=== PATIENT | female | born 1940 | race Caucasian/White ===

== ENCOUNTER 2017-12-01 10:21 | Emergency (ER) | payer OTHER ==
[~2017-12-01] VITALS: Ht 160 cm; Wt 61.7 kg
[~2017-12-01 10:21] MED LIST: ASPIR 8181 MG PO; CALCIUM + D 6001 TAB PO; CRESTOR20 MG PO; HYDRODIURIL 2525 MG PO; LEVEMIR100 U/ML SC; LOPRESSOR50 MG PO; MAG PO; NORFLEX100 MG PO; NORVASC 10MG10 MG PO; NOVOLOG100 U/ML SC; SYNTHROID0.05 MG PO; TEKTURNA300 MG PO; [UNRECOGNIZED DRUG - OTHER] PO
--- NOTE | 2017-12-01 10:49 | ED GI/GU/ABDOMINAL COMPLAINT ---
History of Present Illness General Chief Complaint: Nausea, Vomiting, Diarrhea Stated Complaint: NVD Source: patient, family, old records Exam Limitations: no limitations Vital Signs & Intake/Output Vital Signs & Intake/Output Vital Signs Date Time Temp Pulse Resp B/P B/P Pulse O2 O2 Flow FiO2 Mean Ox Delivery Rate 12/01 1158 97.6 82 18 128/59 98 Room Air 12/01 1025 98.6 109 18 136/76 98 Room Air Allergies Coded Allergies: MDX - Oxycodone (OXYCODONE) (VOMITING, GI UPSET 02/11/15) Reconcile Medications ALISKIREN HEMIFUMARATE (Tekturna) 300 MG TABLET 1 TAB PO DAILY BP (Reported) Amlodipine (Norvasc 10MG) 10 MG TABLET 1 TAB PO DAILY BP (Reported) Aspirin (Ecotrin) 81 MG TABLET.DR 1 TAB PO DAILY HEART HEALTH (Reported) Calcium Carbonate/Magnesium/ (Liqui-David/Mag 600 MG-75 MG-25 Iu) (Unknown Strength) SGL (Unknown Dose) PO DAILY SUPPLEMENT (Reported) Hydrochlorothiazide (Hydrodiuril 25 MG Tab) 25 MG TABLET 1 TAB PO DAILY BP ( Reported) Insulin Aspart, Recombinant (Novolog) 100 U/ML FAUSTO 16 UNITS SC TIDAC GLUCOSE CONTROL (Reported) BLOOD SUGAR # OF UNITS < 80 NONE 80-150 NONE 151-200 4 UNITS 201-250 6 UNITS 251-300 8 UNITS 301-350 10 UNITS 351-400 12 UNITS >400 14 UNITS and call MD Insulin Detemir (Levemir) 100 U/ML FAUSTO 70 UNITS SC BID DIABETES (Reported) Levothyroxine Sodium (Synthroid) 0.05 MG TAB 0.05 MG PO DAILY AC THYROID ( Reported) Metoprolol Tartrate (Lopressor) 50 MG TAB 0.5 TAB PO BID BP (Reported) Rosuvastatin Calcium (Crestor) 20 MG TABLET 1 TAB PO QPM CHOLESTEROL ( Reported) Triage Note: 77 YO FEMALE TO TRIAGE C/O NVD. STATES SHE SEES PAIN MANAGEMENT FOR SPINAL STENOSIS. STATES SHE IS ON (LYRICA, MELOXICAM, MORPHINE) STATES SHE RAN OUT OF HER MEDS AND HER LAST DOSE WAS ON LAST FRIDAY. STATES SHE HAS BEEN HAVING DIRRHEA AND DRY HEAVES. STATES "EVERYTHING I EAT GOES THROUGH ME" Triage Nurses Notes Reviewed? yes ? n Is pt currently ? No HPI: Patient presents with increasing nausea and anorexia worsening over the past week. Patient is a diabetic but she has not wanted to take her insulin but she has not been eating. Patient states she has a gnawing sensation in her epigastric area that has been present for the past 3 days constantly. There are no aggravating or mitigating factors. There is no radiation. She rates it as mild on the scale. Patient states that she had diarrhea "all day yesterday." Patient states that she has IBS but her diarrhea is usually controlled. Patient denies any chest pain or shortness of breath. There is no fatigue. This morning her fingerstick was 400 so she comes to the emergency department for evaluation. Of note patient is on chronic pain management and she ran out of her pain medication 4 days ago. Patient has no appointment to see her pain management doctor on Friday. Past History Travel History Traveled to [place] past 21 day No Medical History Any Pertinent Medical History? see below for history ( ) Neurological: NONE EENT: NONE Cardiovascular: HTN, HIGH CHOL Respiratory: NONE Gastrointestinal: NONE Hepatic: NONE Renal: NONE Musculoskeletal: SPINAL FUSION Psychiatric: NONE Endocrine: diabetes, HYPOTHYRIOD History of CDIFF: No Surgical History Surgical History: non-contributory Psychosocial History What is your primary language Palauan Tobacco Use: Never used Family History Hx Contributory? No Review of Systems Review of Systems Constitutional: Reports: no symptoms. EENTM: Reports: no symptoms. Respiratory: Reports: no symptoms. Cardiovascular: Reports: no symptoms. GI: Reports: see HPI, abdominal pain, nausea. Genitourinary: Reports: no symptoms. Musculoskeletal: Reports: no symptoms. Skin: Reports: no symptoms. Neurological/Psychological: Reports: no symptoms. Hematologic/Endocrine: Reports: no symptoms. Immunologic/Allergic: Reports: no symptoms. All Other Systems: Reviewed and Negative Physical Exam Physical Exam General Appearance: well developed/nourished, alert, awake, mild distress Head: atraumatic, normal appearance Eyes: Bilateral: PERRL, EOMI. Ears, Nose, Throat, Mouth: hearing grossly normal, DRY MUCOSA Neck: normal inspection, supple, full range of motion Respiratory: normal breath sounds, chest non-tender, no respiratory distress, lungs clear Cardiovascular: regular rate/rhythm, normal peripheral pulses Gastrointestinal: normal bowel sounds, soft, non-tender, no organomegaly Back: normal inspection, normal range of motion Extremities: normal range of motion Neurologic/Psych: no motor/sensory deficits, awake, alert, oriented x 3, normal mood/affect Skin: intact, normal color, warm/dry Core Measures ACS in differential dx? No Sepsis Present: No Sepsis Focused Exam Completed? No Progress Differential Diagnosis: AMI, bowel obstruction, diverticulitis, gastritis, hepatitis, ischemic bowel, inflamm bowel dis, pancreatitis, peptic ulcer, PUD/ GERD, DKA Plan of Care: Orders Procedure Date/time Status Regular Diet 12/01 D Active Add-on Test (ER Only) 12/01 1308 Active CULTURE,URINE 12/01 1226 Active MIXED VENOUS BLOOD GAS (GEN) 12/01 1047 Active Telemetry/Machine Heel Sprayer 12/01 1047 Active URINALYSIS 12/01 1047 Complete TROPONIN LEVEL 12/01 1047 Complete LIPASE 12/01 1047 Complete COMPREHENSIVE METABOLIC PANEL 12/01 1047 Complete CBC WITHOUT DIFFERENTIAL 12/01 1047 Complete AMYLASE 12/01 1047 Complete ACETONE 12/01 1047 Complete EKG 12/01 1028 Active Laboratory Tests 12/01/17 1226: Urine Color YEL, Urine Clarity CLDY H, Urine pH 6.0, Ur Specific [place] 1.025, Urine Protein 100 H, Urine Ketones NEG, Urine Nitrite NEG, Urine Bilirubin NEG, Urine Urobilinogen 0.2, Ur Leukocyte Esterase TRACE H, Ur Microscopic SEDIMENT EXAMINED, Urine RBC RARE, Urine WBC > 75 H, Ur Epithelial Cells MOD H, Urine Bacteria PACKD H, Urine Hemoglobin MOD H, Urine Glucose >=1000 H 12/01/17 1101: Anion Gap 17 H, Estimated GFR > 60, BUN/Creatinine Ratio 23.3, Glucose 334 H, Calcium 9.9, Total Bilirubin 0.8, AST 48 H, ALT 37, Alkaline Phosphatase 162 H , Troponin I 0.02, Total Protein 7.4, Albumin 4.4, Globulin 3.0, Albumin/ Globulin Ratio 1.5, Amylase 33, Lipase 167, CBC w Diff NO MAN DIFF REQ, RBC 5.09 , MCV 85.8, MCH 29.2, RDW 14.0, MPV 9.9, Gran % 82.0 H, Lymphocytes % 10.3 L, Monocytes % 7.7, Eosinophils % 0, Basophils % 0, Absolute Granulocytes 11.3 H, Absolute Lymphocytes 1.4, Absolute Monocytes 1.1 H, Absolute Eosinophils 0, Absolute Basophils 0, PUBS MCHC 34.0, Acetone Level NEGATIVE Microbiology 12/01 1226 URINE ROUT: Urine Culture - RECD Diagnostic Imaging: Viewed by Me: Radiology Read. Discussed w/RAD: Radiology Read. CXR Impression: PATIENT: ERENDIRA BRAY PRESENT AGE: 77 PATIENT ACCOUNT NO: [id number] : 39 LOCATION: [facility] ORDERING PHYSICIAN: Elie Torres MD SERVICE DATE: 12/01/17 EXAM TYPE: RAD - XRY- PORTABLE CHEST XRAY EXAMINATION: XR PORTABLE CHEST CLINICAL INFORMATION: Chest pain. COMPARISON: Chest done on 09/05/2013. TECHNIQUE: Portable frontal view of the chest was obtained. FINDINGS: Asymmetric low lung volume is present within the right hemithorax, similar to prior study. This is probably a normal variation. Both aerated lung trevino are clear. The cardiac mediastinal silhouette is within normal limit. There is no pleural effusion present. The visualized upper abdomen is unremarkable. IMPRESSION: No acute cardiopulmonary disease. DICTATED BY: Sue Scales MD DATE/TIME DICTATED:12/01/171137 SOFTWARE QUALITY AUTOMATION ENGINEER:JERONIMO DATE/TIME TRANSCRIBED:12/01/171137 CONFIDENTIAL, DO NOT COPY WITHOUT APPROPRIATE AUTHORIZATION. <Electronically signed in Other Vendor System> SIGNED BY: Sue Scales MD 12/01/17 1143 Initial ED EKG: SR, LVH, BIFASICULAR BLOCK, NEW FROM 2012 Prior EKG: changed Comments: Patient really wants to try and go home. Patient was given IV dose of antibiotics for her urinary tract infection. Patient will eat lunch and the emergency room and as long as she is able to tolerate eating she will then get up and ambulate and as long as she ambulated well to then be discharged. Patient ate lunch and then ambulated in the emergency department without difficulty. The patient is stable for discharge. Departure Departure Disposition: HOME OR SELF CARE Condition: Stable Clinical Impression Primary Impression: UTI (urinary tract infection) Secondary Impressions: Hyperglycemia Referrals: Angus WINKLER,Abe Albarado (PCP/Family) Additional Instructions: MAKE SURE YOU EAT AND TAKE YOUR MEDICATIONS PRESCRIBED TAKE ANTIBIOTICS PRESCRIBED RETURN FOR ANY CONCERNS Departure Forms: Customer Survey General Discharge Information Prescriptions: Current Visit Scripts Nitrofurantoin Monohyd/M-Cryst (Macrobid 100 MG Capsule) 1 CAP PO BID #14 CAP with food Morphine Sulfate 1 TAB PO BIDP PRN PAIN #7 TAB Pregabalin (Lyrica) 1 CAP PO DAILY #4 CAP Meloxicam 1 TAB PO DAILY #4 TAB
[2017-12-01 11:25] LABS: ABSOLUTE BASOPHIL COUNT 0 /CUMM (0.0-0.2); ABSOLUTE EOSINOPHIL COUNT 0 /CUMM (0.0-0.7); ABSOLUTE GRANULOCYTE CT 11.3 /CUMM (1.4-6.5); ABSOLUTE LYMPH COUNT 1.4 /CUMM (1.2-3.4); ABSOLUTE MONOCYTE COUNT 1.1 /CUMM (0.10-0.60); BASOPHIL % 0 % (0.0-2.0); EOSINOPHIL % 0 % (0-5); HEMATOCRIT 43.7 % (37-47); MEAN CORPUSCULAR HGB 29.2 PG (27.0-31.0); MEAN CORPUSCULAR VOLUME 85.8 FL (81.0-99.0); MEAN PLATELET VOLUME 9.9 FL (7.4-10.4); PLATELET COUNT 247 /CUMM (130-400); RED BLOOD CELL CT 5.09 /CUMM (4.20-5.40); WHITE BLOOD CELL COUNT 13.8 /CUMM (4.8-10.8)
--- NOTE | 2017-12-01 11:43 | RADIOLOGY REPORT ---
EXAMINATION: XR PORTABLE CHEST CLINICAL INFORMATION: Chest pain. COMPARISON: Chest done on 09/05/2013. TECHNIQUE: Portable frontal view of the chest was obtained. FINDINGS: Asymmetric low lung volume is present within the right hemithorax, similar to prior study. This is probably a normal variation. Both aerated lung trevino are clear. The cardiac mediastinal silhouette is within normal limit. There is no pleural effusion present. The visualized upper abdomen is unremarkable. IMPRESSION: No acute cardiopulmonary disease.
[2017-12-01] MEDS ORDERED: MORPHINE SULFAT30 M7 PO (14:31)
[2017-12-01] MEDS ORDERED: LYRICA100 M1 PO (14:31)
[2017-12-01] MEDS ORDERED: MELOXICAM15 M1 PO (14:31)
[2017-12-01] MEDS ORDERED: MACROBID 100 M100 MG PO (14:31)
[2017-12-01 14:36] VITALS: BP 124/70
== END 2017-12-01 14:37 ==
LOC: ERH 10:21
PROVIDERS: Emergency Medicine
DX: N39.0 Urinary tract infection, site not specified (principal); E11.65 Type 2 diabetes mellitus with hyperglycemia
CPT/HCPCS: 71045; 81001; 87086; 93005; 93010; 96374; 96375; J0696; J2405

== ENCOUNTER 2018-01-24 06:42 | Emergency (ER) | payer OTHER ==
[~2018-01-24] VITALS: Ht 149.9 cm; Wt 61.2 kg
[~2018-01-24 06:42] MED LIST changes: +LYRICA100 M1 PO; +MACROBID 100 M100 MG PO; +MELOXICAM15 M1 PO; +MORPHINE SULFAT30 M7 PO
--- NOTE | 2018-01-24 07:26 | ED GENERAL ADULT ---
History of Present Illness General Chief Complaint: Nausea, Vomiting, Diarrhea Stated Complaint: NVD SINCE ,?ADVERSE REACTION TO NEW MED Source: patient Exam Limitations: no limitations Vital Signs & Intake/Output Vital Signs & Intake/Output Vital Signs Date Time Temp Pulse Resp B/P B/P Pulse O2 O2 Flow FiO2 Mean Ox Delivery Rate 01/24 1240 98.4 90 18 140/82 95 Room Air 01/24 1037 98.2 83 18 147/65 94 Room Air 01/24 0645 99.5 84 18 174/76 95 Room Air Allergies Coded Allergies: oxycodone (VOMITING, GI UPSET 01/24/18) Reconcile Medications Albuterol Sulfate (Proair Hfa) 90 MCG HFA.AER.AD 2 PUF INH AD PRN RESP. ( Reported) Aliskiren Hemifumarate (Tekturna) 300 MG TABLET 1 TAB PO DAILY BP (Reported) Amlodipine Besylate 10 MG TABLET 1 TAB PO DAILY BP (Reported) Aspirin (Ecotrin*) 81 MG TABLET.DR 1 TAB PO DAILY HEART/BLOOD (Reported) Cholecalciferol (Vitamin D3) (Vitamin D3) 1,000 UNIT CAPSULE 1 CAP PO DAILY SUPPLEMENT (Reported) Cholestyramine/Aspartame (Prevalite Packet) (Unknown Strength) POWD.PACK ( Unknown Dose) PO AD GI (Reported) Dicyclomine HCl 10 MG CAPSULE 1 CAP PO 4XDAILY IBS (Reported) Diphenoxylate HCl/Atropine (Lomotil 2.5-0.025 MG Tablet) 2.5 MG-0.025 MG TABLET 1 TAB PO 4 TIMES/DAY PRN DIARRHEA (Reported) Etodolac 400 MG TABLET 1 TAB PO AD PAIN/INFLAMMATION (Reported) Hydrochlorothiazide 25 MG TABLET 1 TAB PO DAILY BP/DIURETIC (Reported) Insulin Aspart (Novolog) 100 UNIT/ML VIAL DM (Reported) Insulin Degludec (Tresiba Flextouch U-200) 200 UNIT/ML (3 ML) INSULN.PEN 44 UNITS SC QPM DM (Reported) Levothyroxine Sodium 50 MCG TABLET 1 TAB PO DAILY THYROID (Reported) Melatonin 10 MG CAPSULE 1 CAP PO QPM SLEEP (Reported) Metoprolol Tartrate (Lopressor) 50 MG TABLET 0.5 TAB PO BID HEART/BP ( Reported) Morphine Sulfate (Morphine Sulfate ER) 30 MG TABLET.ER 1 TAB PO BID PAIN ( Reported) Potassium Chloride (Klor-Con 10) 10 MEQ TABLET.ER 1 TAB PO DAILY SUPPLEMENT ( Reported) Pregabalin (Lyrica) 100 MG CAPSULE 1 CAP PO AD NERVE PAIN (Reported) Pyridoxine HCl (Vitamin B-6) 100 MG TABLET 1 TAB PO DAILY SUPPLEMENT ( Reported) Rosuvastatin Calcium (Crestor) 20 MG TABLET 1 TAB PO DAILY CHOLESTEROL ( Reported) Vitamin E Mixed (Vitamin E) (Unknown Strength) TABLET (Unknown Dose) PO BID SUPPLEMENT (Reported) Triage Note: PT TO ED FOR FOR VOMITING ONLY AFTER MEALS SINCE FRIDAY, DENIES ANY ABD PAIN, LNBM THIS AM. Triage Nurses Notes Reviewed? yes Onset: Abrupt Duration: day(s): Timing: recent history HPI: 01/24/18 9:23 AM 69-year-old female presents to the emergency department complaining of nausea and vomiting. The patient states she has a history of irritable bowel syndrome and diabetes. She was recently started on Prevalite by Dr. Gracia, this improved her diarrhea however she's now had vomiting and thinks that this may be the cause. She denies any abdominal pain. Past History Travel History Traveled to [place] past 21 day No Medical History Any Pertinent Medical History? see below for history Neurological: NONE EENT: NONE Cardiovascular: HTN, HIGH CHOL Respiratory: NONE Gastrointestinal: NONE Hepatic: NONE Renal: NONE Musculoskeletal: SPINAL FUSION Psychiatric: NONE Endocrine: diabetes, HYPOTHYRIOD History of CDIFF: No Surgical History Surgical History: cholecystectomy, hysterectomy, thyroid nodule Psychosocial History What is your primary language Portuguese Tobacco Use: Never used ETOH Use: denies use Illicit Drug Use: denies illicit drug use Family History Hx Contributory? No Review of Systems Review of Systems Constitutional: Denies: fever. EENTM: Denies: visual changes. Respiratory: Denies: short of breath. Cardiovascular: Denies: chest pain. GI: Reports: vomiting. Denies: abdominal pain. Genitourinary: Reports: no symptoms. Musculoskeletal: Reports: no symptoms. Skin: Reports: no symptoms. Neurological/Psychological: Reports: no symptoms. Hematologic/Endocrine: Reports: no symptoms. Immunologic/Allergic: Reports: no symptoms. Physical Exam Physical Exam General Appearance: well developed/nourished, alert, awake, anxious, moderate distress Head: atraumatic, normal appearance Eyes: Bilateral: normal appearance, PERRL, EOMI. Ears, Nose, Throat: normal pharynx, normal ENT inspection Neck: normal inspection, supple, full range of motion Respiratory: normal breath sounds, chest non-tender, no respiratory distress Cardiovascular: regular rate/rhythm Peripheral Pulses: 4+ radial (R), 4+ radial (L) Gastrointestinal: soft, non-tender Rectal: normal rectal tone Back: normal range of motion Extremities: normal range of motion Neurologic/Psych: no motor/sensory deficits, awake, alert, oriented x 3 Skin: intact, normal color, warm/dry Core Measures ACS in differential dx? No CVA/TIA Diagnosis: No Sepsis Present: No Sepsis Focused Exam Completed? No Progress Differential Diagnoses I considered the following diagnoses in my evaluation of the patient: [ Diverticulitis, pancreatitis, gastroparesis viral syndrome diabetic ketoacidosis ,] Plan of Care: Orders Procedure Date/time Status RAPID VIRAL INFLUENZA A 01/24 748 Complete LIPASE 01/24 748 Complete COMPREHENSIVE METABOLIC PANEL 01/24 748 Complete CBC WITHOUT DIFFERENTIAL 01/24 748 Complete ACETONE 01/24 748 Complete EKG 01/24 748 Active Laboratory Tests 01/24/18 0846: Anion Gap 14, Estimated GFR > 60, BUN/Creatinine Ratio 21.4, Glucose 258 H, Calcium 9.7, Total Bilirubin 0.9, AST 42 H, ALT 58 H, Alkaline Phosphatase 151 H, Total Protein 6.9, Albumin 4.2, Globulin 2.7, Albumin/Globulin Ratio 1.6, Lipase 34, CBC w Diff NO MAN DIFF REQ, RBC 4.98, MCV 85.7, MCH 28.7, MCHC 33.5, RDW 13.6, MPV 9.5, Gran % 82.9 H, Lymphocytes % 11.6 L, Monocytes % 5.1, Eosinophils % 0.1, Basophils % 0.3, Absolute Granulocytes 9.6 H, Absolute Lymphocytes 1.3, Absolute Monocytes 0.6, Absolute Eosinophils 0, Absolute Basophils 0, Acetone Level NEGATIVE Microbiology 01/24 858 NASOPHARYN: Influenza Virus A & B Rapid Smear - COMP Initial ED EKG: NSR, RBBB, nonspecific ST T wave chg Prior EKG: unchanged Departure Departure Disposition: HOME OR SELF CARE Condition: Stable Clinical Impression Primary Impression: Vomiting Secondary Impressions: Lesion of liver Referrals: Angus WINKLER,Abe K. (PCP/Family) Departure Forms: Customer Survey General Discharge Information Comments 01/24/18 1 PMPATIENT: ERENDIRA BRAY PRESENT AGE: 77 PATIENT ACCOUNT NO: [id number] : 39 LOCATION: [facility] ORDERING PHYSICIAN: Remi cAosta DO SERVICE DATE: 01/24/18-1012 EXAM TYPE: CAT - CT ABD & PELVIS W IV CONTRAST EXAMINATION: CT ABDOMEN AND PELVIS WITH CONTRAST CLINICAL INFORMATION: Abdominal pain, vomiting COMPARISON: CT abdomen and pelvis dated 02/11/2015 TECHNIQUE: Multidetector volumetric imaging was performed of the abdomen and pelvis following IV administration of 80 mL of Optiray 320 intravenous contrast. Sagittal and coronal reformatted images were obtained on the technologist's workstation. DLP: 468.3 mGy-cm FINDINGS: LUNG BASES: No focal airspace disease. Scattered punctate calcified granulomas. No pleural or pericardial effusion. Mild to moderate cardiomegaly. Dense mitral annular calcifications. Coronary artery atherosclerosis. Elevation of the right hemidiaphragm. Small hiatal hernia. LIVER, GALLBLADDER, AND BILIARY TREE: There are numerous low-density peripheral/subcapsular lesions in the left hepatic lobe, new since CT dated 02/11/2015. There is a peripheral low density interface between the lesions and the hepatic parenchyma. The liver is otherwise normal in contour. The gallbladder is surgically absent. Similar mildly prominent caliber of the common bile duct, with smooth distal tapering. No intrahepatic biliary ductal dilation. PANCREAS: Diffuse parenchymal atrophy, increased since prior CT. SPLEEN: Unremarkable. ADRENAL GLANDS: Unremarkable. KIDNEYS AND URETERS: The kidneys are normal in size, shape, and attenuation. No hydronephrosis, hydroureter, or calculi seen. No perinephric stranding. Small cyst noted in the lower pole of the right kidney. BLADDER: Unremarkable. GASTROINTESTINAL TRACT: Small hiatal hernia. Small bowel is nondilated. The colon is mildly redundant but otherwise unremarkable. No pericolonic inflammatory change. The appendix is unremarkable. ABDOMINAL WALL: Moderate-sized fat-containing umbilical hernia is again seen. LYMPH NODES: No retroperitoneal or mesenteric lymphadenopathy. VASCULAR: Scattered aortoiliac atherosclerosis without abdominal aortic aneurysm. Incidentally noted circumaortic left renal vein. The portal venous branches appear patent. PELVIC VISCERA: Status post hysterectomy. No adnexal mass is seen. OSSEOUS STRUCTURES: Status post lower lumbar spine laminectomy and fusion spanning L4-S1. Since 2015, there has been development of advanced degenerative disc disease at L3-L4 with grade 1 anterolisthesis of L3 on L4, as well as prominent heterotopic ossification posteriorly with marked narrowing of the spinal canal. Vertebral body heights appear maintained. IMPRESSION: Multifocal low density geographic lesions in the left hepatic lobe in a subcapsular distribution. Exact etiology is unclear. There is no discernible major portal venous branch thrombosis to suggest infarction. Perihepatitis is unlikely in this patient group. Peritoneal implants are unlikely in the absence of ascites and adnexal lesion although not entirely excluded. The adjacent stomach is unremarkable. There is no regional lymphadenopathy. Question atypical pattern of fatty infiltration. Atypical infection is not excluded. However, these do not have the typical morphology of abscess collections. Further evaluation with abdominal MRI with contrast is recommended. This result was discussed with Remi Acosta MD by telephone on 01/24/2018 11:22 AM. Otherwise, no evidence of acute abnormality within the abdomen or pelvis. 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 DICTATED BY: Leeann Obrien MD DATE/TIME DICTATED:01/24/181039 GREASE REFINER OPERATOR:JERONIMO DATE/TIME TRANSCRIBED:01/24/181039 CONFIDENTIAL, DO NOT COPY WITHOUT APPROPRIATE AUTHORIZATION. <Electronically signed in Other Vendor System> SIGNED BY: Leeann Obrien MD 01/24/18 1137 Critical Care Note Critical Care Note Critical Care Time: non-applicable
[2018-01-24 09:17] LABS: ABSOLUTE BASOPHIL COUNT 0 /CUMM (0.0-0.2); ABSOLUTE EOSINOPHIL COUNT 0 /CUMM (0.0-0.7); ABSOLUTE GRANULOCYTE CT 9.6 /CUMM (1.4-6.5); ABSOLUTE LYMPH COUNT 1.3 /CUMM (1.2-3.4); ABSOLUTE MONOCYTE COUNT 0.6 /CUMM (0.10-0.60); BASOPHIL % 0.3 % (0.0-2.0); EOSINOPHIL % 0.1 % (0-5); GRANULOCYTE % 82.9 % (42.2-75.2); HEMATOCRIT 42.7 % (37-47); MEAN CORPUSCULAR HGB 28.7 PG (27.0-31.0); MEAN CORPUSCULAR HGB CONC 33.5 G/DL (33.0-37.0); MEAN CORPUSCULAR VOLUME 85.7 FL (81.0-99.0); MEAN PLATELET VOLUME 9.5 FL (7.4-10.4); PLATELET COUNT 231 /CUMM (130-400); RBC DISTRIBUTION WIDTH 13.6 % (11.5-14.5); RED BLOOD CELL CT 4.98 /CUMM (4.20-5.40); WHITE BLOOD CELL COUNT 11.5 /CUMM (4.8-10.8)
--- NOTE | 2018-01-24 11:37 | CT SCAN REPORT ---
EXAMINATION: CT ABDOMEN AND PELVIS WITH CONTRAST CLINICAL INFORMATION: Abdominal pain, vomiting COMPARISON: CT abdomen and pelvis dated 02/11/2015 TECHNIQUE: Multidetector volumetric imaging was performed of the abdomen and pelvis following IV administration of 80 mL of Optiray 320 intravenous contrast. Sagittal and coronal reformatted images were obtained on the technologist's workstation. DLP: 468.3 mGy-cm FINDINGS: LUNG BASES: No focal airspace disease. Scattered punctate calcified granulomas. No pleural or pericardial effusion. Mild to moderate cardiomegaly. Dense mitral annular calcifications. Coronary artery atherosclerosis. Elevation of the right hemidiaphragm. Small hiatal hernia. LIVER, GALLBLADDER, AND BILIARY TREE: There are numerous low-density peripheral/subcapsular lesions in the left hepatic lobe, new since CT dated 02/11/2015. There is a peripheral low density interface between the lesions and the hepatic parenchyma. The liver is otherwise normal in contour. The gallbladder is surgically absent. Similar mildly prominent caliber of the common bile duct, with smooth distal tapering. No intrahepatic biliary ductal dilation. PANCREAS: Diffuse parenchymal atrophy, increased since prior CT. SPLEEN: Unremarkable. ADRENAL GLANDS: Unremarkable. KIDNEYS AND URETERS: The kidneys are normal in size, shape, and attenuation. No hydronephrosis, hydroureter, or calculi seen. No perinephric stranding. Small cyst noted in the lower pole of the right kidney. BLADDER: Unremarkable. GASTROINTESTINAL TRACT: Small hiatal hernia. Small bowel is nondilated. The colon is mildly redundant but otherwise unremarkable. No pericolonic inflammatory change. The appendix is unremarkable. ABDOMINAL WALL: Moderate-sized fat-containing umbilical hernia is again seen. LYMPH NODES: No retroperitoneal or mesenteric lymphadenopathy. VASCULAR: Scattered aortoiliac atherosclerosis without abdominal aortic aneurysm. Incidentally noted circumaortic left renal vein. The portal venous branches appear patent. PELVIC VISCERA: Status post hysterectomy. No adnexal mass is seen. OSSEOUS STRUCTURES: Status post lower lumbar spine laminectomy and fusion spanning L4-S1. Since 2014, there has been development of advanced degenerative disc disease at L3-L4 with grade 1 anterolisthesis of L3 on L4, as well as prominent heterotopic ossification posteriorly with marked narrowing of the spinal canal. Vertebral body heights appear maintained. IMPRESSION: Multifocal low density geographic lesions in the left hepatic lobe in a subcapsular distribution. Exact etiology is unclear. There is no discernible major portal venous branch thrombosis to suggest infarction. Perihepatitis is unlikely in this patient group. Peritoneal implants are unlikely in the absence of ascites and adnexal lesion although not entirely excluded. The adjacent stomach is unremarkable. There is no regional lymphadenopathy. Question atypical pattern of fatty infiltration. Atypical infection is not excluded. However, these do not have the typical morphology of abscess collections. Further evaluation with abdominal MRI with contrast is recommended. This result was discussed with Remi Acosta MD by telephone on 01/24/2018 11:22 AM. Otherwise, no evidence of acute abnormality within the abdomen or pelvis. 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
[2018-01-24 12:40] VITALS: BP 140/82
[2018-01-24] MEDS ORDERED: AMLODIPINE BESY10 M1 PO (12:58)
[2018-01-24] MEDS ORDERED: HYDROCHLOROTHIA25 M1 PO (12:58)
[2018-01-24] MEDS ORDERED: TEKTURNA300 M1 PO (12:58)
[2018-01-24] MEDS ORDERED: LOPRESSOR50 M1 PO (12:59)
[2018-01-24] MEDS ORDERED: CRESTOR20 M2 PO (13:00)
[2018-01-24] MEDS ORDERED: LEVOTHYROXINE50 MCG PO (13:00)
[2018-01-24] MEDS ORDERED: ASPIRIN EC81 M1 PO (13:00)
[2018-01-24] MEDS ORDERED: VITAMIN B-6100 M1 PO (13:01)
[2018-01-24] MEDS ORDERED: VITAMIN D31000 UNI1 PO (13:01)
[2018-01-24] MEDS ORDERED: KLOR-CON 1010 ME1 PO (13:02)
[2018-01-24] MEDS ORDERED: MELATONIN10 M5 PO (13:02)
[2018-01-24] MEDS ORDERED: DICYCLOMINE HCL10 M1 PO (13:03)
[2018-01-24] MEDS ORDERED: MORPHINE SULFAT30 M3 PO (13:05)
[2018-01-24] MEDS ORDERED: NOVOLOG100 UNIT/2 SC (13:07)
[2018-01-24] MEDS ORDERED: TRESIBA FL200 UNIT/1 SC (13:07)
[2018-01-24] MEDS ORDERED: LYRICA100 M1 PO (13:07)
[2018-01-24] MEDS ORDERED: PROAIR HFA8.5 GM INH (13:08)
[2018-01-24] MEDS ORDERED: PREVALITE PACKET4 GM PO (13:08)
[2018-01-24] MEDS ORDERED: VITAMIN E100 UNI2 PO (13:08)
[2018-01-24] MEDS ORDERED: LOMOTIL 2.5-0.1 EACH PO (13:09)
[2018-01-24] MEDS ORDERED: ETODOLAC400 M1 PO (13:09)
== END 2018-01-24 13:30 ==
LOC: ERH 06:42
PROVIDERS: Emergency Medicine
DX: R11.10 Vomiting, unspecified (principal); K76.9 Liver disease, unspecified
CPT/HCPCS: 74177; 87804; 87804-59; 93005; 93010; 96374; J2405